=== PATIENT | male | born 1945 | race Hispanic/Latino ===

== ENCOUNTER 2017-04-23 13:16 | Day surgery (SDC) | payer MEDICARE ==
[2017-04-23] MEDS ORDERED: WATER FOR IRRIG STERILE ONE (16:35)
[2017-04-23] MEDS ORDERED: WATER FOR IRRIG STERILE IR ONE (16:35)
[2017-04-23] MEDS ORDERED: NACL 0.9% 1000 ML 1,000 ML ONE (16:44)
[2017-04-23] MEDS ORDERED: NACL 0.9% 1000 ML 1,000 ML IV SCH (17:00)
--- NOTE | 2017-04-23 17:04 | Anesthesia Day of Surgery ---
Anesthesia Day of Surgery - Day of Surgery Patient Examined: Yes Patient H&P Reviewed: Yes Patient is NPO: Yes
--- NOTE | 2017-04-23 17:05 | Anesthesia Consultation ---
Anesthesia Consult and Med Hx Date of service: 04/23/17 - Airway Anesthetic Teeth Evaluation: Edentulous ROM Head & Neck: Adequate Mental/Hyoid Distance: Adequate Mallampati Class: Class II Intubation Access Assessment: Probably Good - Pulmonary Exam CTA: Yes - Cardiac Exam Cardiac Exam: RRR - Pre-Operative Health Status ASA Pre-Surgery Classification: ASA3 Proposed Anesthetic Plan: MAC - Pulmonary Hx Smoking: Yes - Cardiovascular System Hx Hypertension: Yes - Endocrine Hx Cirrhosis: Yes (ETOH use) - Other Systems Hx Alcohol Use: Yes Hx Substance Use: Yes
[2017-04-23] MEDS ORDERED: DIPRIVAN 10 MG/ML IV ONE ×2 (17:09)
--- NOTE | 2017-04-23 17:23 | Post Anesthesia Evaluation ---
- Post Anesthesia Evaluation Patient Participated: Yes Airway Patent: Yes Stable Respiratory Function: Yes Nausea/Vomiting: No Temp > 96.8F: Yes Pain Manageable: Yes Adequeate Hydration: Yes Anesthesia Complications: No Block Receding Appropriately: Not Applicable Patient on Ventilator: No
--- NOTE | 2017-04-23 17:53 | Operative Report ---
Operative Report Operative Report: Date of procedure: 04/23/2017 Procedure: Colonoscopy with Ablation, Hot Biopsy Polypectomy. Hemorrhoidal band Ligation. Attending physician: Candelario Graves MD Developer Programmer Analyst: Candelario Graves MD Indication: Patient is a 71-year-old male who presents for with recurrent rectal bleeding. A colonoscopy service to evaluate patient so that treatment may be directed based on the findings. Consent: Informed consent was obtained after advising the patient and family regarding nature of this procedure, its indications, potential benefits as well as possible complications including but not limited to bleeding perforation and adverse reaction to medication, infection as well as other cardiopulmonary complications. An informed written and verbal consent was then obtained after due opportunity was provided for questions and answers. Monitoring: Patient was monitored continuously with pulse oximetry and electrocardiographic recordings as well as blood pressure recordings. Vital signs remained stable throughout this procedure with no untoward events. Preoperative assessment: Patient was assessed immediately prior to this procedure for capacity to tolerate monitored anesthesia care and moderate sedation as well as general anesthesia. Patient's ASA classification is 2, Mallampati class is 2, Hyomental distance is 3. Instrument: Mindjet video colonoscope Medications: Propofol given intravenously in divided doses. For details please refer to anesthesia records. Description of procedure: Patient was placed in the left lateral decubitus position after achieving sedation, a digital rectal examination was performed following which the colonoscope was introduced into the anal verge and advanced to the cecum which was identified by the cecal valve, the appendiceal orifice, as well as by the cecal strap and direct transillumination. The colonoscope was subsequently withdrawn with careful inspection of all mucosal surfaces. Patient tolerated this procedure well and was subsequently taken to the recovery room. The following findings were noted. Findings: Patient had previous polypectomy site in the sigmoid colon which appeared normal. There was a diminutive polyp in the sigmoid colon which was ablated. There was an ileocecal valve polyp which was removed by hot biopsy polypectomy. There was substantial retained stool in the ascending colon and cecum and also in the transverse colon. Patient also had diverticula of various sizes in the descending colon and in the sigmoid colon. On the retroflex view at the anal verge, patient had large prominent friable internal hemorrhoids. The hemorrhoids appeared friable on the retroflex examination. Subsequently, the endoscope was removed following which multiband ligator ( Speedband Superview Super 7 Microvasive/[employer]) multiband ligator was preloaded on the endoscope. This was then reintroduced following which multiple bands were applied. The bands were applied below the dentate line in four positions. Patient tolerated the procedure well with no untoward events. Impression: Prominent friable internal hemorrhoids. Status post successful hemorrhoidal band ligation Sigmoid colon polyp status post ablation Ascending colon polyp status post hot biopsy polypectomy. Poor colonoscopic preparation. Diverticulosis of the colon. Plan: Follow pathology report. High-fiber diet. Daily sitz baths. Anusol HC suppositories per rectum daily at bedtime. 5% lidocaine ointment per rectum every 6 hours as needed. MiraLAX 17 g in 8 ounce glass of water daily or Patient given instructions about possible complications for which she must contact the manager lean. Patient is scheduled for outpatient follow-up in 2 weeks. High-fiber diet. Repeat colonoscopy in 10 years.
[2017-04-23 18:08] VITALS: BP 180/88
--- NOTE | 2017-04-23 18:14 | Discharge Summary ---
Short Stay Discharge Plan Activity: advance as tolerated Weight Bearing Status: Weight Bear as Tolerated Diet: regular Additional Instructions: Post Sedation D/C Instructions When you return home you may resume your regular diet unless otherwise directed. -Go directly home from the hospital and rest quietly. You may resume normal activities tomorrow. -Do NOT drive, return to work, operate any machinery or make any important personal or business decisions today. - Do NOT drink any alcohol or take nerve or sleeping drugs. They add to the effects of the medicine still present in your body. Prescriptions: Hydrocortisone [Anucort-HC SUPPOS] 25 mg RC BID #30 supp.rect Lidocaine Topical 5% [Xylocaine Topical 5%] 35.44 gm TP Q6H #2 tube Polyethylene Glycol 3350 [Miralax 3350] 17 gm PO QDAY #20 powd.pack traMADol [Ultram] 50 mg PO Q6HR PRN #60 tablet PRN Reason: Pain
== END 2017-04-23 13:17 | disposition home or self-care (01) ==
LOC: GIO 13:16
PROVIDERS: ATTEND Internal Medicine Gastroenterology
DX: K63.5 Polyp of colon (principal); K57.30 Diverticulosis of large intestine without perforation or abscess without bleeding; K64.8 Other hemorrhoids; K21.9 Gastro-esophageal reflux disease without esophagitis; F17.210 Nicotine dependence, cigarettes, uncomplicated; I10 Essential (primary) hypertension; Z72.89 Other problems related to lifestyle; Z79.899 Other long term (current) drug therapy; Z98.890 Other specified postprocedural states; Z87.19 Personal history of other diseases of the digestive system; F19.90 Other psychoactive substance use, unspecified, uncomplicated; Z88.8 Allergy status to other drugs, medicaments and biological substances; Z80.9 Family history of malignant neoplasm, unspecified
CPT/HCPCS: 45384; 45388; 45398; 88305; J2704; J7030